=== PATIENT | male | born 1930 | race Caucasian/White ===

== ENCOUNTER 2020-01-24 15:05 | Outpatient (CLI) | payer MEDICAID, MEDICARE ==
[~2020-01-24 15:05] MED LIST: ACET325T14 PO; BISA10SU54 PR; CALC-112 PO; CHOL2000 PO; CLOP75TA PO; CYAN500T54 PO; DIAZ5TAB PO; GABA-827 PO; GUAI600T80 PO; HYPR15DR5 EACHEYE; IPRA4AER INH; LEVO25TA4 PO; MAGN400O7 PO; OMEP40CA42 PO; OXYC500S PO; PLAVIX PO; PROM25VI5 IM; PSYL1POW PO; SENN8.6T98 PO; SIMV20TA19 PO; SOLI10TA2 PO; TAMS0.4C2 PO; ZOLP-413 PO
[2020-01-24] MEDS ORDERED: TRIA10.8 NAS (15:52)
[2020-01-24] MEDS ORDERED: TRIA15CR53 TD (15:52)
[2020-01-24] MEDS ORDERED: ACET-1600 PO (15:52)
[2020-01-24] MEDS ORDERED: [UNRECOGNIZED DRUG - OTHER] EACHEYE (15:52)
[2020-01-24] MEDS ORDERED: FINA5TAB4 PO (15:52)
[2020-01-24] MEDS ORDERED: CARB15DR3 EACHEYE (15:52)
[2020-01-24] MEDS ORDERED: LISI-167 PO (15:52)
[2020-01-24] MEDS ORDERED: SUVO10TA PO (15:52)
[2020-01-24 16:31] LABS: BASOPHILS # (AUTO) 0.04 x10^3/uL (0-0.1); BASOPHILS % (AUTO) 1 % (0-1); EOSINOPHILS # (AUTO) 0.28 x10^3/uL (0-0.4); EOSINOPHILS % (AUTO) 4 % (1-7); LYMPHOCYTES % (AUTO) 23 % (22-44); MD NO; MEAN CORPUSCULAR HEMOGLOBIN 30.8 pg (27.5-34.5); MEAN CORPUSCULAR HGB CONC 33.2 g/dL (33.2-36.2); MEAN CORPUSCULAR VOLUME 92.9 fL (81-97); MEAN PLATELET VOLUME 8.4 fL (7.4-10.4); MONOCYTES # (AUTO) 0.54 x10^3/uL (0.2-0.8); MONOCYTES % (AUTO) 7 % (2-9); NEUTROPHILS # (AUTO) 4.89 x10^3/uL (1.8-6.8); NEUTROPHILS % (AUTO) 66 % (42-75); PLATELET COUNT 209 x10^3/uL (130-400); RED BLOOD COUNT 5.18 x10^6/uL (4.38-5.82)
[2020-01-24 16:37] LABS: ALBUMIN 3.8 g/dL (3.4-5.0); ANION GAP 5 mmol/L (5-15); CALCIUM 9.3 mg/dL (8.5-10.1); CHLORIDE 106 mmol/L (98-107)
[2020-01-24 16:42] LABS: ALANINE AMINOTRANSFERASE 20 U/L (12-78); ALKALINE PHOSPHATASE 62 U/L (45-117); BILIRUBIN,TOTAL 0.9 mg/dL (0.2-1.0); CREATININE 1.49 mg/dL (0.7-1.3); TOTAL PROTEIN 7.7 g/dL (6.4-8.2)
== END 2020-01-24 23:59 | disposition home or self-care (01) ==
LOC: STAR 15:05
PROVIDERS: ATTEND Orthopaedic Surgery
DX: Z01.810 Encounter for preprocedural cardiovascular examination (principal); Z01.812 Encounter for preprocedural laboratory examination; M25.561 Pain in right knee; I45.19 Other right bundle-branch block
CPT/HCPCS: 36415; 80053; 85025; 87081; 93005

== ENCOUNTER 2020-01-31 10:16 | Observation (INO) | payer MEDICAID, MEDICARE ==
[~2020-01-31] VITALS: Ht 160 cm; Wt 76.1 kg
[~2020-01-31 10:16] MED LIST changes: +ACET-1600 PO; +CARB15DR3 EACHEYE; +EPINEPHRINE 1 MG/ML, 1ML ONE; +FINA5TAB4 PO; +KETOROLAC 60 MG/2 ML ONE; +LISI-167 PO; +ROPIvacaine/PF 0.2%, 20 ML ONE; +SODIUM CHLORIDE 0.9% 50 ML ONE; +SUVO10TA PO; +TRANEXAMIC ACID 100 MG/ML, 10ML ONE; +TRIA10.8 NAS; +TRIA15CR53 TD; +[UNRECOGNIZED DRUG - OTHER] EACHEYE
[2020-01-31] MEDS ORDERED: FENTANYL PF 100 MCG/2ML ONE ×2 (10:37→14:49)
[2020-01-31] MEDS ORDERED: LACTATED RINGERS 1,000 ML IV SCH (10:45)
[2020-01-31] MEDS ORDERED: ACETAMINOPHEN 500 MG TABLET PO STA (10:45)
[2020-01-31 10:46] VITALS: BP 172/73
[2020-01-31] MEDS ORDERED: ONDANSETRON 2MG/ML, 2ML ONE (12:20)
[2020-01-31] MEDS ORDERED: PROPOFOL 10 MG/ML, 20ML ONE (12:20)
[2020-01-31] MEDS ORDERED: DEXAMETHASONE 4 MG/ML, 1ML ONE (12:20)
[2020-01-31] MEDS ORDERED: CEFAZOLIN 1,000 MG ONE (12:20)
[2020-01-31] MEDS ORDERED: ONDANSETRON 2MG/ML, 2ML IV PRN ×2 (14:30→15:00)
[2020-01-31] MEDS ORDERED: hydrALAzine 20 MG/ML, 1ML IV PRN (14:30)
[2020-01-31] MEDS ORDERED: HYDROmorphone 2 MG/ML, 1ML IVPush PRN (14:30)
[2020-01-31] MEDS ORDERED: PROMETHAZINE 25 MG SUPP PR PRN (14:30)
[2020-01-31] MEDS ORDERED: LABETALOL 5MG/ML, 20ML IV PRN (14:30)
[2020-01-31] MEDS ORDERED: ONDANSETRON ODT 8 MG PO PRN (14:30)
[2020-01-31] MEDS ORDERED: OXYcodone 5 MG/5 ML ORAL.SOL UDC ONE ×2 (14:49→15:18)
[2020-01-31] MEDS: OXYcodone 5 MG/5 ML ORAL.SOL UDC PO PRN ×2 (14:50→15:19)
[2020-01-31] MEDS: FENTANYL PF 100 MCG/2ML IV PRN ×3 (14:53→15:16)
[2020-01-31] MEDS ORDERED: DIPHENHYDRAMINE 50 MG CAPSULE PO PRN (15:00)
[2020-01-31] MEDS ORDERED: SENNA/DOCUSATE TABLET PO PRN (15:00)
[2020-01-31] MEDS ORDERED: DIAZEPAM 5 MG TABLET PO PRN (15:00)
[2020-01-31] MEDS ORDERED: POLYETHYLENE GLYCOL 17 GM PACKET PO PRN (15:00)
[2020-01-31] MEDS ORDERED: PSYLLIUM PACKET PO PRN (15:00)
[2020-01-31] MEDS ORDERED: HYDROmorphone 1 MG/ML, 1ML INJ IVPush PRN (15:00)
[2020-01-31] MEDS ORDERED: MAGNESIUM HYDROXIDE 8%, 30ML UDC PO PRN (15:00)
[2020-01-31] MEDS ORDERED: BISACODYL 10 MG SUPP PR PRN (15:00)
[2020-01-31] MEDS ORDERED: ZOLPIDEM 5MG TABLET PO PRN (15:00)
[2020-01-31] MEDS ORDERED: OXYcodone IR 5MG TABLET PO PRN (15:00)
[2020-01-31] MEDS ORDERED: ONDANSETRON 4 MG TABLET PO PRN (15:00)
[2020-01-31] MEDS ORDERED: PROMETHAZINE 12.5 MG SUPP PR PRN (15:00)
[2020-01-31] MEDS ORDERED: TRANEXAMIC ACID 1,000 MG in SODIUM CHLORIDE 0.9% 100 ML IVPB ONE (15:30)
[2020-01-31] MEDS: CALCIUM/VITAMIN D3 250-125 TABLET PO SCH (16:17)
[2020-01-31] MEDS: ACETAMINOPHEN 500 MG TABLET PO SCH ×2 (16:17→22:50)
[2020-01-31] MEDS: D5%-0.45% NACL 1,000 ML IV SCH (16:26)
[2020-01-31] MEDS: FERROUS SULFATE 325 MG TABLET PO SCH (18:08)
[2020-01-31 19:50] VITALS: BP 135/83
[2020-01-31] MEDS: ASPIRIN 81 MG TABLET EC PO SCH ×2 (21:00→22:50)
[2020-01-31] MEDS: DOCUSATE 100 MG CAPSULE PO SCH (22:50)
[2020-01-31] MEDS: SIMVASTATIN 10 MG TABLET PO SCH (22:50)
[2020-01-31] MEDS: TAMSULOSIN 0.4 MG CAP.ER.24H PO SCH (22:50)
[2020-01-31] MEDS: CEFAZOLIN PMX 1GM/50ML 50 ML IVPB SCH (23:00)
[2020-01-31 23:45] VITALS: BP 132/68
[2020-02-01] MEDS: ACETAMINOPHEN 500 MG TABLET PO SCH ×3 (04:34→16:39)
[2020-02-01] MEDS: ALUMINUM/MAG/SIMETHICONE 30 ML UDC PO PRN ×2 (04:34→12:00)
[2020-02-01 04:40] VITALS: BP 149/66
[2020-02-01] MEDS ORDERED: LEVOTHYROXINE 25 MCG TABLET ONE (05:41)
[2020-02-01] MEDS: LEVOTHYROXINE 25 MCG TABLET PO SCH (05:42)
[2020-02-01] MEDS: CLOPIDOGREL 75 MG TABLET PO SCH ×2 (06:00→09:00)
[2020-02-01] MEDS ORDERED: DEXAMETHASONE 4 MG/ML, 1ML IVPush SCH (06:00)
[2020-02-01 07:35] VITALS: BP 129/63
[2020-02-01] MEDS: CEFAZOLIN PMX 1GM/50ML 50 ML IVPB SCH (07:37)
[2020-02-01] MEDS: FERROUS SULFATE 325 MG TABLET PO SCH ×2 (08:03→16:39)
[2020-02-01] MEDS: MULTIVITAMINS/MINERALS TABLET PO SCH (08:03)
[2020-02-01] MEDS: ASCORBIC ACID 500 MG TABLET PO SCH (08:03)
[2020-02-01] MEDS: CALCIUM/VITAMIN D3 250-125 TABLET PO SCH ×3 (08:03→16:39)
[2020-02-01] MEDS: LISINOPRIL 10 MG TABLET PO SCH (08:03)
[2020-02-01] MEDS: ASPIRIN 81 MG TABLET EC PO SCH ×2 (08:03→21:09)
[2020-02-01] MEDS: DOCUSATE 100 MG CAPSULE PO SCH ×2 (08:04→21:00)
[2020-02-01] MEDS ORDERED: LEVOTHYROXINE 25 MCG TABLET PO SCH (09:00)
[2020-02-01] MEDS: FINASTERIDE 5 MG TABLET PO SCH (12:01)
[2020-02-01 14:30] VITALS: BP 146/71
[2020-02-01 18:47] VITALS: BP 148/61
[2020-02-01] MEDS: D5%-0.45% NACL 1,000 ML IV SCH ×2 (19:22→21:09)
[2020-02-01] MEDS: SIMVASTATIN 10 MG TABLET PO SCH (21:09)
[2020-02-01] MEDS: TAMSULOSIN 0.4 MG CAP.ER.24H PO SCH (21:09)
[2020-02-02] MEDS: ACETAMINOPHEN 500 MG TABLET PO SCH ×3 (00:32→16:35)
[2020-02-02 02:00] VITALS: BP 159/67
[2020-02-02] MEDS: LEVOTHYROXINE 25 MCG TABLET PO SCH (06:29)
[2020-02-02 07:46] VITALS: BP 124/54
[2020-02-02] MEDS: ASCORBIC ACID 500 MG TABLET PO SCH (08:42)
[2020-02-02] MEDS: ASPIRIN 81 MG TABLET EC PO SCH (08:42)
[2020-02-02] MEDS: FERROUS SULFATE 325 MG TABLET PO SCH ×2 (08:42→16:35)
[2020-02-02] MEDS: DOCUSATE 100 MG CAPSULE PO SCH (08:43)
[2020-02-02] MEDS: CLOPIDOGREL 75 MG TABLET PO SCH (08:43)
[2020-02-02] MEDS: FINASTERIDE 5 MG TABLET PO SCH (08:43)
[2020-02-02] MEDS: LISINOPRIL 10 MG TABLET PO SCH (08:43)
[2020-02-02] MEDS: MULTIVITAMINS/MINERALS TABLET PO SCH (08:43)
[2020-02-02] MEDS: CALCIUM/VITAMIN D3 250-125 TABLET PO SCH ×3 (08:43→16:35)
== END 2020-02-02 17:10 | disposition home or self-care (01) ==
LOC: OUT 10:16 → EDSTATUS 12:45 → 4NE 14:52 → OUT 22:11
PROVIDERS: ADMIT Orthopaedic Surgery; ATTEND Orthopaedic Surgery
DX: M17.11 Unilateral primary osteoarthritis, right knee (principal); K21.9 Gastro-esophageal reflux disease without esophagitis; H40.9 Unspecified glaucoma; M53.9 Dorsopathy, unspecified; Z86.73 Personal history of transient ischemic attack (TIA), and cerebral infarction without residual deficits; Z68.26 Body mass index [BMI] 26.0-26.9, adult; Z79.899 Other long term (current) drug therapy; Z87.891 Personal history of nicotine dependence
CPT/HCPCS: 27447; 36415; 73560; 85014; 85018; 96365; 96366; 96375; 97110; 97116; 97161; 97165; 97530; C1713; C1776; G0378; J0171; J0690; J1100; J1885; J2405; J2704; J2795; J3010; J7120